=== PATIENT | male | born 1955 | race Caucasian/White ===

== ENCOUNTER 2016-07-24 07:38 | Day surgery (SDC) | payer OTHER ==
[~2016-07-24] VITALS: Ht 185.4 cm; Wt 96.1 kg
[2016-07-24] VITALS (8 sets, daily range): BP systolic 119–143; BP diastolic 65–89; PULSE 50–63; RESP 11–16; O2SAT 95–98
--- NOTE | 2016-07-24 07:34 | PCM.HPANE ---
Patient Data Surgeon Admitting Provider: Attending Provider:Mariya Alcantara MD Primary Care Physician:Yelena Other Provider:Jossie Aldana Anesthesia Reason for Visit Left Hydrocele Ht/WT & BMI Height (Feet): 6 Height (Inches): 1 Weight (Kilograms): 95.436 Body Mass Index 27.00 Allergies Coded Allergies: Penicillins (Verified Allergy, Unknown, UNKNOWN (CAN TAKE KEFLEX), ) PATIENT DOESN'T RECALL HAVING REACTION TO PCN bupropion (Verified Allergy, Unknown, UNKNOWN, 07/23/16) trazodone (Verified Allergy, Unknown, UNKNOWN, 07/23/16) venlafaxine (Verified Allergy, Unknown, UNKNOWN, 07/23/16) nortriptyline (Unverified Adverse Reaction, Severe, URINARY FREQUENCY, ) oxycodone (Verified Adverse Reaction, Severe, HALLUCINATED, 07/23/16) meperidine (Verified Adverse Reaction, Intermediate, HALLUCINATED,N&V, ) Past Anesthesia History Anesthesia History: Denies:: Abnormal Airway, Anesthesia Reactions, Difficult Intubation, Fam Anesthesia Reaction, Fam Malignant Hypertherm, Malignant Hyperthermia Diabetes History Hx Diabetes?: No MRSA MRSA: No Medications Reported Medications Alprazolam 0.25 Mg Tablet0.25 Mg PO TID PRN For Anxiety Ref 0 07/23/16 Sertraline HCl (Zoloft)50 Mg [id number] Mg PO DAILY Ref 0 07/23/16 Gabapentin (Neurontin)100 Mg [id number] Mg PO HS Ref 0 07/23/16 Pramipexole Dihydrochloride (Mirapex)0.5 Mg Tablet0.5-1 Mg PO QPM PRN PRN 07/23/16 Discontinued Reported Medications Oxycodone ER (Oxycontin)20 Mg Tab.er.12h20 Mg PO BID 07/23/16 oxyCODONE 20 Mg [id number] Mg PO Q4-6H PRN For Pain Ref 0 07/23/16 Hydrocodone-Acetaminophen 5-325 mg 1 Each Tablet1 Tablet PO Q6H PRN For Pain Ref 0 07/23/16 History History of ENT Problems?: No HEENT History: Positive for:: Hearing Problem Denies:: Abnormal Airway Difficult Intubation Hx of Heart Problems?: No Cardiovascular History: Denies:: Heart Murmur Hypertension Hx of Respiratory Problem?: Yes Respiratory History: Positive for:: Use of C-PAP Machine (MARCELA+ W/ CPAP SLEEP STUDY 09/2010) Hx Neurologic Problems?: Yes Neurological History: Denies:: CVA Other Neurological Pertinent: C/OF INSOMNIA, RLS Hx of GI Problems?: Yes Gastrointestinal History: Denies:: Rectal Bleeding (HX COLON POLYPS & HEMORRHOIDS) Hx of Problems?: No Male Hx: Positive for:: Scrotal Mass (LT HYDROCELE=CURRENT PROBLOEM) Testicular Surgery (S/P VASECTOMY) Denies:: Prostate Problems Skin History: Denies:: History Skin Disorders? Pressure Ulcers Hx Musculoskeletal Problems?: Yes Musculoskeletal History: Positive for:: Back Injury (C/OF CHRONIC BACK PAIN) Musculoskeletal Trauma (S/P BILAT KNEE SCOPES,B/L SHOULDER RPR'S,HAMSTRING RPR ,NAVICULAR RPR X2 ) Denies:: Joint Replacement Hx of Psycho/Social Problems?: Yes Psycho Social History: Positive for:: Anxiety Hx Depression Hx Surgeries?: Yes (B/L KNEE SCOPES,B/L SHOULDER RPR'S,HAMSTRING RPR,NAVICULAR RPR X2) Hx Any Other Health Problems?: Yes Other History: Denies:: Cancer Endocrine Disease Hospitalization Thyroid Disease History Blood Transfusions: Denies:: Blood Transfusions Hx Diabetes: No Hx Alcohol Use: YesHx Substance Use: No Smoking Status: Never Smoker Have You Smoked inLast 12 mo: No Stop/Bang S-Snoring: Do You Snore Loudly: Yes T-Tired: feel tired, fatigued: Yes O-Obsered: Observed not breath: No P-Blood Pressure: treated: No B- Body Mass Index > 35 kg/m2: No A- Age over 50: Yes N- Neck Large Circumference: No G- Gender Male: Yes MARCELA Total Score: 4 MARCELA Risk Assessment: High Risk, =/>3 Yes MARCELA Category 4 OutPt Procedure: Yes Risk Assessment Category Category 1A: Patient has history of documented sleep apnea, and HAS NOT received any narcotic, sedative or anesthesia administration during this stay. Category 1B: Patient has history of documented sleep apnea, and HAS received any narcotic , sedative or anesthesia administration during this stay Category 2: Patient has SUSPECTED Obstructive Sleep Apnea, and HAS received any narcotic , sedative or anesthesia administration during this stay. Category 3: Patient has SUSPECTED Obstructive Sleep Apnea and HAS NOT received narcotic, sedative or anesthesia administration during this stay. Category 4: Outpatient in Procedural Areas with known sleep apnea or who screen positive for High Risk via the STOP/BANG questionnaire. Exam Exam General Appearance: Alert, Oriented X3, Cooperative, No Acute Distress HEENT/AIRWAY: MP 1 Lungs: Normal Air Movement Heart: Exam Unremarkable Plan Impression Patient chart reviewed, patient interviewed and anesthestic plan with risks, benefits, and alternatives discussed, and informed consent obtained. NPO Status: solids 9pm 09/26, clr 0900 (chicken broth) ASA Physical Status: ASA2 Mod Systemic Disease Anesthetic Plan: GA Bene/Risks/Altern/Consents: Yes HP Complete Prior to Induction: Yes Jaycob Naranjo MD Jul 24, 2016 07:34
[~2016-07-24 07:38] MED LIST: ALPR0.254 PO; CeFAZolin 2 Gm/50 mL D5W IV Premix IV ONE; GABA100C PO; Lactated Ringer's 1,000 ML IV SCH; PRAM0.5T3 PO; SERT50TA PO
[2016-07-24] MEDS ORDERED: Dexamethasone 4 mg/mL Inj ONE (07:39)
[2016-07-24] MEDS ORDERED: Propofol 10,000 mCg/mL 20 mL Inj ONE (07:39)
[2016-07-24] MEDS ORDERED: Ondansetron 2 mg/mL 2 mL Inj ONE (07:39)
[2016-07-24] MEDS ORDERED: fentaNYL-PF 50 mCg/mL 2 mL Inj ONE (07:39)
[2016-07-24] MEDS ORDERED: Bupivacaine-MPF 0.5% W/EPI 30 mL Inj INFILTRATE ONE (10:16)
[2016-07-24] MEDS ORDERED: Lactated Ringer's 1,000 ML IV SCH (10:24)
[2016-07-24] MEDS ORDERED: Lactated Ringer's 500 ML IV PRN (10:24)
[2016-07-24] MEDS ORDERED: Ondansetron 2 mg/mL 2 mL Inj IVPUSH PRN (10:25)
[2016-07-24] MEDS ORDERED: MetoCLOpramide 5 mg/mL 2 mL Inj IVPUSH PRN (10:25)
[2016-07-24] MEDS ORDERED: EPHEDrine Sulfate 50 mg/mL Inj IVPUSH PRN (10:25)
[2016-07-24] MEDS ORDERED: HYDROmorphone 1 mg/mL Inj IVPUSH PRN (10:25)
[2016-07-24] MEDS ORDERED: Dexamethasone 4 mg/mL Inj IVPUSH PRN (10:25)
[2016-07-24] MEDS ORDERED: Phenylephrine 10,000 mCg/mL Inj IVPUSH PRN (10:25)
[2016-07-24] MEDS ORDERED: fentaNYL-PF 50 mCg/mL 2 mL Inj IVPUSH PRN (10:25)
[2016-07-24] MEDS ORDERED: Bacitracin Ointment Packet TOPICAL ONE (10:36)
[2016-07-24] MEDS ORDERED: HYDROcodone-APAP 5-325 mg Tablet PO PRN (11:15)
[2016-07-24] MEDS ORDERED: Ondansetron 8 mg ODT Tablet PO PRN (11:15)
--- NOTE | 2016-07-24 11:34 | PCM.ANEP1 ---
Post Anesthesia Phase 1 PACU Phase 1 Assessment Vital Signs Vital Signs Date Time Temp Pulse Resp B/P Pulse Ox O2 Delivery O2 Flow Rate FiO2 07/24/16 11:30 36.7 56 11 127/70 97 Room Air 07/24/16 11:25 57 14 123/71 95 Room Air 07/24/16 11:20 58 14 130/78 95 Room Air 07/24/16 11:15 61 11 133/80 96 Room Air 07/24/16 11:11 37.1 63 12 143/85 98 Room Air 07/24/16 08:03 36.4 59 16 135/89 97 Room Air Anesthetic Administered: GA Level of Alertness: Awake, talking SPICER's with Equal Strength: Yes Pain: No Nausea or Vomiting: No Oxygen Delivery: Room Air Lungs: Normal Air Movement Jaycob Naranjo MD Jul 24, 2016 11:34
--- NOTE | 2016-07-24 11:35 | PCM.ANEP2 ---
Post Anesthesia Evaluation ASA/CMS Post Anesthesia VS in Patient's Normal Range?: Yes Resp Stable; Airway Patent?: Yes CV Function & Hydration Stable: Yes Mental Status Recovered?: Yes Pain control Satisfactory?: Yes N/V Control Satisfactory?: Yes Jaycob Naranjo MD Jul 24, 2016 11:35
--- NOTE | 2016-07-26 00:25 | OP ---
[address] [address] OPERATIVE REPORT PATIENT: MILADIS ROYAL : 1955 MR#: [id number] ADMIT: 07/24/2016 JOB ID: [id number] DATE OF SURGERY: 07/24/2016 PREOPERATIVE DIAGNOSIS(ES): 1. Bothersome left spermatocele. 2. Small left hydrocele. POSTOPERATIVE DIAGNOSIS(ES): 1. Bothersome left spermatocele. 2. Small left hydrocele. PROCEDURE: 1 Spermatocelectomy Left 2 hydrocelectomy on the left. SURGEON: Mariya Alcantara MD. ANESTHESIA: General. 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 PROCEDURE IN DETAIL: After appropriate informed consent was obtained, the patient was brought to the operating room. Adequate general anesthesia was induced. SCDs were placed. He was carefully placed in the supine position. All pressure points carefully padded. Cleaned, prepped, and draped in the usual sterile fashion. A midline incision was carried out overlying the raphe. Sharp, blunt and electrocautery was used to dissect down to the left testis which was freed up completely. There was noted to be a small left-sided hydrocele which was entered initially. Resected edges were cauterized and oversewn with a 3-0 chromic suture. We then addressed the spermatoceles more cephalad on the testis itself. One was quite large and there were several other loculated areas which were likewise removed. The edges were cauterized extensively. We used again 3-0 chromic to over-sew this. Hemostasis was good. Testis was replaced in anatomic position into the left hemiscrotal sac, irrigated copiously with Ancef solution. The wound was closed with running 2-0 Vicryl for the dartos, and the skin was closed with 2-0 chromic. We used Marcaine plain without epinephrine for local block. Both a core block and an incisional block was carried out. The patient tolerated the procedure very well. Cosmetic appearance was good. Scrotal support was placed. He was awakened, taken in stable condition to the postanesthesia care unit. [facility]
== END 2016-07-24 23:59 | disposition home or self-care (01) ==
LOC: SAS 07:38
PROVIDERS: ATTEND Urology
PROC: 0VBK0ZZ Excision of Left Epididymis, Open Approach (ICD-10-PCS; 2016-07-24)
PROC: 0VB70ZZ Excision of Left Tunica Vaginalis, Open Approach (ICD-10-PCS; principal; 2016-07-24 09:30)
DX: N43.3 Hydrocele, unspecified (principal); N43.41 Spermatocele of epididymis, single
CPT/HCPCS: 55040; J0690; J1100; J2250; J2405; J7120